=== PATIENT | male | born 1965 | race Two or more races ===

== ENCOUNTER 2020-09-28 04:18 | Inpatient (IN) | payer BC ==
[~2020-09-28] VITALS: Ht 167.6 cm; Wt 103.4 kg
[2020-09-28] VITALS (7 sets, daily range): BP systolic 118–152; BP diastolic 83–106
[2020-09-28] MEDS ORDERED: HEPARIN 5,000 UNITS/ML, 1ML ONE (04:53)
[2020-09-28] MEDS ORDERED: HEPARIN 25,000 UNITS/250ML PMX 250 ML ONE (04:53)
[2020-09-28] MEDS ORDERED: HEPARIN 5,000 UNITS/ML, 1ML IV ONE (05:00)
[2020-09-28] MEDS ORDERED: SODIUM CHLORIDE FLUSH 10ML SYR IVF ONE (05:00)
[2020-09-28] MEDS ORDERED: HEPARIN 5,000 UNITS/ML, 1ML IV PRN ×2 (05:00→15:00)
[2020-09-28] MEDS ORDERED: PLEASE ENTER ALLERGIES MC SCH (05:00)
[2020-09-28] MEDS ORDERED: HEPARIN 25,000 UNITS/250ML PMX 250 ML IV PRN (05:00)
[2020-09-28 05:10] LABS: BASOPHILS % (AUTO) 1 % (0-1); EOSINOPHILS % (AUTO) 0 % (1-7); LYMPHOCYTES % (AUTO) 11 % (22-44); MEAN CORPUSCULAR HEMOGLOBIN 30.7 pg (27.5-34.5); MEAN CORPUSCULAR HGB CONC 33.6 g/dL (33.2-36.2); MEAN PLATELET VOLUME 8.2 fL (7.4-10.4); MONOCYTES % (AUTO) 7 % (2-9); NEUTROPHILS % (AUTO) 81 % (42-75); PLATELET COUNT 226 x10^3/uL (130-400); RED BLOOD COUNT 3.89 x10^6/uL (4.38-5.82); RED CELL DISTRIBUTION WIDTH 14.3 % (9.4-14.8)
[2020-09-28 05:11] LABS: MD NO
[2020-09-28 05:19] LABS: ALBUMIN 2.2 g/dL (3.4-5.0); ANION GAP 10 mmol/L (5-15); CALCIUM 7.4 mg/dL (8.5-10.1); CHLORIDE 113 mmol/L (98-107)
--- NOTE | 2020-09-28 05:21 | NUR ---
patient resting in bed in NAD. reports 1/10 pain in L chest radiating down L arm. VS remain stable with slight HTN. call farley in reach. safety maintained. heparin infusing per order protocol. Labs drawn prior to starting. safety maintained. will continue to monitor.
[2020-09-28 05:24] LABS: ALANINE AMINOTRANSFERASE 38 U/L (12-78); ALKALINE PHOSPHATASE 106 U/L (45-117); BILIRUBIN,TOTAL 0.6 mg/dL (0.2-1.0); CREATININE 8.85 mg/dL (0.7-1.3); TOTAL PROTEIN 6.2 g/dL (6.4-8.2)
[2020-09-28] MEDS ORDERED: NITROGLYCERIN OINT 2%, 1GM TP ONE (05:30)
[2020-09-28] MEDS ORDERED: ALBU18HF INH (05:38)
[2020-09-28] MEDS ORDERED: ERGO500018 PO (05:38)
[2020-09-28] MEDS ORDERED: DEXA6TAB6 PO (05:38)
[2020-09-28] MEDS ORDERED: SEVE800T8 PO (05:38)
[2020-09-28] MEDS ORDERED: INSU100V8 SQ (05:38)
[2020-09-28] MEDS ORDERED: CALC0.25 PO (05:38)
[2020-09-28] MEDS ORDERED: INSU100I11 SQ-INSULIN (05:38)
[2020-09-28] MEDS ORDERED: FURO40TA6 PO (05:38)
[2020-09-28] MEDS ORDERED: METO50TA6 PO (05:38)
--- NOTE | 2020-09-28 05:43 | NUR ---
PATIENT STATES "I DONT WANT DIALYSIS. ROMERO HEARD BAD THINGS ABOUT IT". SHERRY RN EDUCATED PATIENT ABOUT RISKS OF NOT GETTING DIALYSIS AND BENEFITS WELL. PATIENT DENIES HE HAS KIDNEY FAILURE DURING TRIAGE BUT STATES HE HAS BEEN TALKED TO ABOUT DIALYSIS. PATIENT REQUESTING MORE INFORMATION ABOUT DIALYSIS. WILL CONTINUE TO MONITOR. PROVIDERS NOTIFIED OF ELEVATED TROPONIN
[2020-09-28] MEDS ORDERED: ONDANSETRON 2MG/ML, 2ML ONE (06:02)
[2020-09-28] MEDS ORDERED: MORPHINE SULFATE 4 MG/ML, 1ML ONE (06:02)
--- NOTE | 2020-09-28 06:09 | NUR ---
PATIENT STARTED VOMITING AND L CHEST PAIN INCREASING TO 3/10 FROM A 1/10 AND RADIATES TO L SHOULDER AND DOWN ARM. PROVIDERS NOTIFIED AND MORPHINE AND ZOFRAN ORDERED AND ADMINISTERED. PATIENT EDUCATED ON BOTH OF THESE MEDICATIONS AND USE
--- NOTE | 2020-09-28 06:17 | NUR ---
PATIENT SHOWN TO BE 76% ON RA WITH GREAT PLETH AND WAVE FORM. RN TO BEDSIDE IMMEDIATELY AND PATIENT BECOMING INTERMITTENTLY APNEIC. I ASKED PATIENT IF HE HAS EVER BEEN TOLD HE STOPS BREATHING WHILE HE SLEEPS AND HE STATES "PROBABLY, I THINK SO." 2L VIA NC PLACED ON PATIENT AND NO EFFECT WITH HIM SLEEPING. TITRATED TO 4L VIA NC AND INCREASED TO 98% BUT PATIENT WAS AWAKE. WILL CONTINUE TO MONITOR ON NEW O2 REQUIREMENTS. ED PROVIDERS NOTIFIED
[2020-09-28] MEDS ORDERED: ONDANSETRON 2MG/ML, 2ML IVPush ONE (06:30)
[2020-09-28] MEDS ORDERED: MORPHINE SULFATE 4 MG/ML, 1ML IVPush PRN (06:30)
[2020-09-28] MEDS ORDERED: SODIUM CHLORIDE FLUSH 10ML SYR IVF PRN (06:30)
--- NOTE | 2020-09-28 06:56 | NUR ---
REPORT GIVEN TO ANDREW LAST AND PAPA RN
--- NOTE | 2020-09-28 06:58 | NUR ---
REPORT RECEIVED FROM BERHANE COOPER. PT CALMLY SLEEPING ON GURNEY, NAD/VSS. NO NEEDS AT THIS TIME, CALL LIGHT WITHIN REACH.
--- NOTE | 2020-09-28 07:39 | NUR ---
Pt to be admitted to CARDIAC TELE, room 505. Report called to JOSE.
[2020-09-28] MEDS ORDERED: DEXTROSE 4 GM TAB.CHEW PO PRN (08:00)
[2020-09-28] MEDS ORDERED: ONDANSETRON 2MG/ML, 2ML IVPush PRN (08:00)
[2020-09-28] MEDS ORDERED: LABETALOL 5MG/ML, 20ML IVPush PRN (08:00)
[2020-09-28] MEDS ORDERED: GLUCAGON 1 MG IM PRN (08:00)
[2020-09-28] MEDS ORDERED: morphine SULFATE 10 MG/ML, 1ML IVPush PRN (08:00)
[2020-09-28] MEDS ORDERED: ERGOCALCIFEROL 50,000 UNIT CAPSULE PO SCH (09:00)
[2020-09-28] MEDS: SEVELAMER CARBONATE 800MG TAB PO SCH ×3 (09:20→20:29)
[2020-09-28] MEDS: CALCITRIOL 0.25 MCG CAPSULE PO SCH (09:24)
[2020-09-28] MEDS: METOPROLOL TARTRATE 50 MG TAB PO SCH ×2 (09:25→20:29)
[2020-09-28] MEDS: SODIUM CHLORIDE FLUSH 10ML SYR IVF SCH ×2 (09:29→20:29)
[2020-09-28] MEDS: INSULIN LISPRO 100 UNITS/ML, PEN SQ-INSULIN SCH ×3 (11:00→20:29)
[2020-09-28] MEDS: DEXTROSE 50%, 50ML SYRINGE IVPush PRN ×2 (11:47→14:22)
[2020-09-28] MEDS ORDERED: LIDOCAINE 1%, 20ML ONE (11:53)
[2020-09-28] MEDS ORDERED: FLUMAZENIL 0.1 MG/1 ML, 5ML ONE (11:57)
[2020-09-28] MEDS ORDERED: FENTANYL PF 100 MCG/2ML ONE ×2 (11:57→15:07)
[2020-09-28] MEDS ORDERED: MIDAZOLAM 1 MG/ML, 5ML ONE ×2 (11:57→15:07)
[2020-09-28] MEDS ORDERED: NALOXONE 1 MG/ML, 2ML ONE (11:57)
[2020-09-28] MEDS ORDERED: CEFAZOLIN PMX 1GM/50ML 50 ML ONE (12:28)
[2020-09-28] MEDS ORDERED: HEPARIN 1,000 UNITS/ML, 10ML ONE (15:08)
[2020-09-28] MEDS ORDERED: BIVALIRUDIN 250 MG ONE ×2 (15:08→16:25)
[2020-09-28] MEDS ORDERED: VERAPAMIL 2.5 MG/ML, 2ML ONE (15:08)
[2020-09-28] MEDS ORDERED: LIDOCAINE-MPF 1%, 5ML ONE (15:08)
[2020-09-28] MEDS ORDERED: TICAGRELOR 90 MG TABLET PO STA (16:27)
[2020-09-28] MEDS ORDERED: TICAGRELOR 90 MG TABLET ONE (16:40)
[2020-09-28] MEDS: FUROSEMIDE 80 MG TABLET PO SCH (18:11)
[2020-09-28] MEDS: SODIUM CHLORIDE 0.9% 1,000 ML IV SCH (18:24)
[2020-09-28 18:46] LABS: CHLORIDE,URINE RANDOM 55 mmol/L; POTASSIUM,URINE RANDOM 53 mmol/L; SODIUM,URINE RANDOM 34 mmol/L
[2020-09-28] MEDS: TICAGRELOR 90 MG TABLET PO SCH (20:28)
[2020-09-28] MEDS ORDERED: ATORVASTATIN 40 MG TABLET PO SCH (21:00)
[2020-09-28 22:01] LABS: MICROSCOPIC INDICATED
[2020-09-29] MEDS: SODIUM CHLORIDE 0.9% 1,000 ML IV SCH ×2 (00:30→08:27)
[2020-09-29 05:16] LABS: BASOPHILS % (AUTO) 1 % (0-1); EOSINOPHILS % (AUTO) 0 % (1-7); LYMPHOCYTES % (AUTO) 12 % (22-44); MEAN CORPUSCULAR HEMOGLOBIN 30.8 pg (27.5-34.5); MEAN CORPUSCULAR HGB CONC 33.3 g/dL (33.2-36.2); MEAN PLATELET VOLUME 9.1 fL (7.4-10.4); MONOCYTES % (AUTO) 10 % (2-9); NEUTROPHILS % (AUTO) 78 % (42-75); PLATELET COUNT 209 x10^3/uL (130-400); RED BLOOD COUNT 3.61 x10^6/uL (4.38-5.82); RED CELL DISTRIBUTION WIDTH 14.7 % (9.4-14.8)
[2020-09-29 05:26] LABS: MD NO
[2020-09-29 05:30] LABS: CHLORIDE 110 mmol/L (98-107)
[2020-09-29 05:47] LABS: % IRON SATURATION 8 % (20-55); ALANINE AMINOTRANSFERASE 46 U/L (12-78); ALBUMIN 1.9 g/dL (3.4-5.0); ALKALINE PHOSPHATASE 87 U/L (45-117); ANION GAP 13 mmol/L (5-15); BILIRUBIN,TOTAL 0.5 mg/dL (0.2-1.0); CALCIUM 7.3 mg/dL (8.5-10.1); CHOL/HDL RATIO 3.2; CHOLESTEROL, TOTAL 146 mg/dL (140-239); CREATININE 9.36 mg/dL (0.7-1.3); HDL CHOL % 32 % (26-37); HDL CHOLESTEROL (DIRECT) 46 mg/dL (40-60); IRON LEVEL 16 mcg/dL (65-175); LDL CHOLESTEROL,CALCULATED 82 mg/dL (54-169); LDL/HDL RATIO 1.8 (0.5-3.0); TOTAL IRON BINDING CAPACITY 205 mcg/dL (250-450); TOTAL PROTEIN 5.8 g/dL (6.4-8.2); TRIGLYCERIDES 90 mg/dL (50-200); VLDL CHOLESTEROL 18 mg/dL (0-25)
[2020-09-29] MEDS ORDERED: ASPIRIN 325 MG TABLET PO SCH (06:00)
[2020-09-29 06:58] VITALS: BP 133/88
[2020-09-29] MEDS: INSULIN LISPRO 100 UNITS/ML, PEN SQ-INSULIN SCH ×4 (07:00→21:04)
[2020-09-29] MEDS: ASPIRIN 81 MG TABLET EC PO SCH (08:26)
[2020-09-29] MEDS: TICAGRELOR 90 MG TABLET PO SCH ×2 (08:26→21:01)
[2020-09-29] MEDS: CALCITRIOL 0.25 MCG CAPSULE PO SCH ×2 (08:27→10:00)
[2020-09-29] MEDS: SEVELAMER CARBONATE 800MG TAB PO SCH ×3 (08:27→17:24)
[2020-09-29] MEDS: METOPROLOL TARTRATE 50 MG TAB PO SCH (08:27)
[2020-09-29] MEDS: FUROSEMIDE 80 MG TABLET PO SCH ×2 (08:27→17:24)
[2020-09-29] MEDS: SODIUM CHLORIDE FLUSH 10ML SYR IVF SCH ×2 (08:28→21:01)
[2020-09-29 10:59] VITALS: BP 147/91
[2020-09-29] MEDS: IRON SUCROSE COMPLEX 100MG/5ML IV SCH (11:00)
[2020-09-29] MEDS: LISINOPRIL 5 MG TABLET PO SCH (11:01)
[2020-09-29 14:29] VITALS: BP 152/98
[2020-09-29] MEDS: CARVEDILOL 6.25 MG TABLET PO SCH (17:23)
[2020-09-29 20:43] VITALS: BP 117/84
[2020-09-29] MEDS: ATORVASTATIN 80 MG TABLET PO SCH (21:01)
[2020-09-30 02:19] VITALS: BP 108/69
[2020-09-30 05:25] VITALS: BP 105/68
[2020-09-30] MEDS: CARVEDILOL 6.25 MG TABLET PO SCH ×2 (05:26→17:24)
[2020-09-30 05:43] LABS: BASOPHILS % (AUTO) 1 % (0-1); EOSINOPHILS % (AUTO) 2 % (1-7); LYMPHOCYTES % (AUTO) 15 % (22-44); MEAN CORPUSCULAR HEMOGLOBIN 30.8 pg (27.5-34.5); MEAN CORPUSCULAR HGB CONC 33.8 g/dL (33.2-36.2); MEAN PLATELET VOLUME 8.8 fL (7.4-10.4); MONOCYTES % (AUTO) 12 % (2-9); NEUTROPHILS % (AUTO) 71 % (42-75); PLATELET COUNT 189 x10^3/uL (130-400); RED BLOOD COUNT 3.35 x10^6/uL (4.38-5.82); RED CELL DISTRIBUTION WIDTH 14.1 % (9.4-14.8)
[2020-09-30 05:45] LABS: MD NO
[2020-09-30 05:54] LABS: ALBUMIN 1.7 g/dL (3.4-5.0); ANION GAP 9 mmol/L (5-15); CALCIUM 7.3 mg/dL (8.5-10.1); CHLORIDE 105 mmol/L (98-107); CREATININE 8.78 mg/dL (0.7-1.3)
[2020-09-30] MEDS: INSULIN LISPRO 100 UNITS/ML, PEN SQ-INSULIN SCH ×4 (07:00→20:42)
[2020-09-30 08:10] VITALS: BP 132/80
[2020-09-30] MEDS: SEVELAMER CARBONATE 800MG TAB PO SCH ×3 (08:30→17:24)
[2020-09-30] MEDS: CALCITRIOL 0.25 MCG CAPSULE PO SCH (08:31)
[2020-09-30] MEDS: TICAGRELOR 90 MG TABLET PO SCH ×2 (08:31→20:37)
[2020-09-30] MEDS: FUROSEMIDE 80 MG TABLET PO SCH ×2 (08:31→17:24)
[2020-09-30] MEDS: ASPIRIN 81 MG TABLET EC PO SCH (08:31)
[2020-09-30] MEDS: IRON SUCROSE COMPLEX 100MG/5ML IV SCH (08:32)
[2020-09-30] MEDS: SODIUM CHLORIDE FLUSH 10ML SYR IVF SCH ×2 (08:37→20:43)
[2020-09-30 12:01] VITALS: BP 148/80
[2020-09-30] MEDS: LISINOPRIL 5 MG TABLET PO SCH (12:04)
[2020-09-30 14:33] VITALS: BP 131/70
[2020-09-30] MEDS: ATORVASTATIN 80 MG TABLET PO SCH (20:37)
[2020-10-01 02:06] VITALS: BP 109/68
[2020-10-01] MEDS: CARVEDILOL 6.25 MG TABLET PO SCH (05:35)
[2020-10-01 05:52] LABS: ALBUMIN 1.6 g/dL (3.4-5.0); ANION GAP 10 mmol/L (5-15); CHLORIDE 102 mmol/L (98-107); CREATININE 7.06 mg/dL (0.7-1.3)
[2020-10-01] MEDS: INSULIN LISPRO 100 UNITS/ML, PEN SQ-INSULIN SCH ×2 (07:00→11:00)
[2020-10-01 07:48] VITALS: BP 104/66
[2020-10-01] MEDS: SEVELAMER CARBONATE 800MG TAB PO SCH ×2 (08:49→13:18)
[2020-10-01] MEDS: ASPIRIN 81 MG TABLET EC PO SCH (08:49)
[2020-10-01] MEDS: TICAGRELOR 90 MG TABLET PO SCH (08:49)
[2020-10-01] MEDS: SODIUM CHLORIDE FLUSH 10ML SYR IVF SCH (08:50)
[2020-10-01] MEDS: FUROSEMIDE 80 MG TABLET PO SCH (08:50)
[2020-10-01] MEDS: CALCITRIOL 0.25 MCG CAPSULE PO SCH (08:50)
[2020-10-01] MEDS ORDERED: ASPI81TA45 PO (11:38)
[2020-10-01] MEDS ORDERED: TICA90TA PO (11:38)
[2020-10-01] MEDS ORDERED: ATOR-2 PO (11:38)
[2020-10-01] MEDS ORDERED: FURO80TA3 PO (11:38)
[2020-10-01] MEDS ORDERED: CARV6.2512 PO (11:38)
[2020-10-01] MEDS: IRON SUCROSE COMPLEX 100MG/5ML IV SCH (13:18)
[2020-10-01 13:25] VITALS: BP 148/62
== END 2020-10-01 15:00 | disposition home or self-care (01) | DRG 246 ==
LOC: ED 05:38 → EDIP 06:25 → 5SO 08:00 → DCLOUNGE 10-01 14:17
PROVIDERS: ADMIT Internal Medicine; ATTEND Family Medicine
PROC: 027034Z Dilation of Coronary Artery, One Artery with Drug-eluting Intraluminal Device, Percutaneous Approach (ICD-10-PCS; principal; 2020-09-28)
PROC: 4A023N7 Measurement of Cardiac Sampling and Pressure, Left Heart, Percutaneous Approach (ICD-10-PCS; 2020-09-28)
PROC: B2111ZZ Fluoroscopy of Multiple Coronary Arteries using Low Osmolar Contrast (ICD-10-PCS; 2020-09-28)
PROC: 0T9B70Z Drainage of Bladder with Drainage Device, Via Natural or Artificial Opening (ICD-10-PCS; 2020-09-28)
DX: I21.4 Non-ST elevation (NSTEMI) myocardial infarction (principal); N18.6 End stage renal disease; I50.41 Acute combined systolic (congestive) and diastolic (congestive) heart failure; I13.2 Hypertensive heart and chronic kidney disease with heart failure and with stage 5 chronic kidney disease, or end stage renal disease; N17.9 Acute kidney failure, unspecified; D63.1 Anemia in chronic kidney disease; E11.22 Type 2 diabetes mellitus with diabetic chronic kidney disease; E11.42 Type 2 diabetes mellitus with diabetic polyneuropathy; E78.5 Hyperlipidemia, unspecified; E88.09 Other disorders of plasma-protein metabolism, not elsewhere classified; I07.1 Rheumatic tricuspid insufficiency; I25.10 Atherosclerotic heart disease of native coronary artery without angina pectoris; I27.29 Other secondary pulmonary hypertension; J45.909 Unspecified asthma, uncomplicated; Z20.822 Contact with and (suspected) exposure to COVID-19; E66.9 Obesity, unspecified; I25.2 Old myocardial infarction; Z82.49 Family history of ischemic heart disease and other diseases of the circulatory system; Z83.3 Family history of diabetes mellitus; Z87.891 Personal history of nicotine dependence; Z91.19 Patient's noncompliance with other medical treatment and regimen; Z99.2 Dependence on renal dialysis; Z79.899 Other long term (current) drug therapy; Z68.36 Body mass index [BMI] 36.0-36.9, adult
CPT/HCPCS: 36415; 93454; 96374; 96375; 99291; C9600; J3490; 36558; 71045; 76937; 80053; 80061; 80069; 81001; 82306; 82436; 82570; 82728; 82962; 83540; 83550; 83735; 83880; 83970; 84100; 84133; 84300; 84443; 84484; 85025; 85520; 86480; 86704; 86705; 86706; 86708; 86803; 87086; 87340; 90935; 93005; 93306; 93356; 99156; 99157; C1769; C1894; G0378; J0583; J0690; J1644; J1756; J2250; J2405; J3010; C1725; C1750; C1874; C1887; G0365; J1642; J1815; J2270; J2310; Q9967